=== PATIENT | male | born 1935 | race Caucasian/White ===

== ENCOUNTER 2020-08-23 12:17 | Outpatient (REF) | payer MEDICARE, SELFPAY ==
[2020-08-23 13:45] LABS: MANUAL DIFF FLAG NO
[2020-08-23 13:57] LABS: Basophils Percent Auto 0.6 % (0-2); Eosinophils Absolute Auto 0.2 X10*3/uL (0.0-0.4); Eosinophils Percent Auto 3.1 % (0-4); Hematocrit 39.5 % (42-52); Hemoglobin 12.8 g/dl (14.0-18.0); Imm Gran Abs Auto 0.02 X10*3/uL (0.00-0.03); Imm Gran Pct Auto 0.3 % (0.0-0.4); Lymphocytes Absolute Auto 1.3 X10*3/uL (1.2-4.9); Lymphocytes Percent Auto 20.9 % (20-40); Mean Corpuscular HGB Conc 32.4 g/dl (31.0-36.0); Mean Corpuscular Hemoglobin 29.3 pg (27.0-33.0); Mean Corpuscular Volume 90.4 fL (80-98); Mean Platelet Volume 11.7 fL (9.4-12.4); Monocytes Absolute Auto 0.5 X10*3/uL (0.1-1.2); Monocytes Percent Auto 8.2 % (2-11); Neutrophils Absolute Auto 4.3 X10*3/uL (2.0-8.3); Neutrophils Percent Auto 66.9 % (45-73); Platelet Count 158 X10*3/uL (160-400); Red Blood Count 4.37 X10*6/uL (4.60-5.80); Red Cell Distribution Width 13.9 % (11.0-16.0); White Blood Count 6.4 X10*3/uL (4.8-10.8)
[2020-08-23 14:28] LABS: Anion Gap 15 (12-20); Blood Urea Nitrogen 17 mg/dL (9-16); Calcium 8.8 mg/dL (8.4-10.2); Carbon Dioxide 26 mmol/L (22-29); Chloride 107 mmol/L (96-108); Estimated Glomerular Filt Rate > 60; Glucose Random 95 mg/dL (60-115); Iron 74 mcg/dL (45-160); Percent Iron Saturation 27 % (15-50); Potassium 4.6 mmol/L (3.3-5.1); Sodium 143 mmol/L (135-145); Total Iron Binding Capacity 271 mcg/dL (228-428); Unsaturated Iron Binding 197 ug/dL
== END 2020-08-23 12:18 | disposition home or self-care (01) ==
LOC: HO.10HDL 12:17
PROVIDERS: Visit Provider Internal Medicine
DX: D64.9 Anemia, unspecified (principal); N40.0 Benign prostatic hyperplasia without lower urinary tract symptoms; G40.909 Epilepsy, unspecified, not intractable, without status epilepticus
CPT/HCPCS: 36415; 80048; 83540; 85025

== ENCOUNTER 2021-02-22 09:02 | Outpatient (REF) | payer MEDICARE, SELFPAY ==
[2021-02-22 10:12] LABS: Basophils Percent Auto 0.4 % (0-2); Eosinophils Absolute Auto 0.3 X10*3/uL (0.0-0.4); Eosinophils Percent Auto 5.3 % (0-4); Hemoglobin 12.9 g/dl (14.0-18.0); MANUAL DIFF FLAG SCAN; Mean Platelet Volume 11.6 fL (9.4-12.4); PLT CLUMP 1; SCAN SMEAR FLAG 1
[2021-02-22 10:14] LABS: Hematocrit 39.4 % (42-52); Imm Gran Abs Auto 0.01 X10*3/uL (0.00-0.03); Imm Gran Pct Auto 0.2 % (0.0-0.4); Lymphocytes Absolute Auto 1.2 X10*3/uL (1.2-4.9); Lymphocytes Percent Auto 23.9 % (20-40); Mean Corpuscular HGB Conc 32.7 g/dl (31.0-36.0); Mean Corpuscular Hemoglobin 29.4 pg (27.0-33.0); Mean Corpuscular Volume 89.7 fL (80-98); Monocytes Absolute Auto 0.5 X10*3/uL (0.1-1.2); Monocytes Percent Auto 8.8 % (2-11); Neutrophils Absolute Auto 3.2 X10*3/uL (2.0-8.3); Neutrophils Percent Auto 61.4 % (45-73); Platelet Count 138 X10*3/uL (160-400); Red Blood Count 4.39 X10*6/uL (4.60-5.80); Red Cell Distribution Width 14.3 % (11.0-16.0); White Blood Count 5.1 X10*3/uL (4.8-10.8)
[2021-02-22 10:31] LABS: Alanine Aminotransferase 19 U/L (0-40); Albumin Level 4.1 g/dL (3.5-5.0); Alkaline Phosphatase 62 U/L (39-117); Anion Gap 11 (12-20); Aspartate Amino Transferase 16 U/L (5-37); Bilirubin Total 0.7 mg/dL (0.0-1.0); Blood Urea Nitrogen 18 mg/dL (9-16); Calcium 9.2 mg/dL (8.4-10.2); Carbon Dioxide 27 mmol/L (22-29); Chloride 109 mmol/L (96-108); Cholesterol 196 mg/dL; Estimated Glomerular Filt Rate > 60; Glucose Fasting 108 mg/dL (60-99); HDL Cholesterol 46 mg/dL; LDL Cholesterol Calculated 138 mg/dl; Potassium 4.5 mmol/L (3.3-5.1); Sodium 142 mmol/L (135-145); Total Protein 6.2 g/dL (6.5-8.0); Triglycerides 63 mg/dL
[2021-02-22 10:52] LABS: Prostate Specific Antigen 0.68 ng/mL (<0.05-4.0)
== END 2021-02-22 09:03 | disposition home or self-care (01) ==
LOC: HO.LAB 09:02
PROVIDERS: PCP Internal Medicine; Visit Provider Internal Medicine
DX: Z12.5 Encounter for screening for malignant neoplasm of prostate (principal); N40.0 Benign prostatic hyperplasia without lower urinary tract symptoms; D64.9 Anemia, unspecified; G40.909 Epilepsy, unspecified, not intractable, without status epilepticus
CPT/HCPCS: 36415; 80053; 80061; 84153; 85025

== ENCOUNTER 2022-04-03 08:16 | Outpatient (REF) | payer MEDICARE, SELFPAY ==
[2022-04-03 10:54] LABS: MANUAL DIFF FLAG NO
[2022-04-03 10:57] LABS: Basophils Absolute Auto 0.1 X10*3/uL (0.0-0.2); Basophils Percent Auto 0.9 % (0-2); Eosinophils Absolute Auto 0.3 X10*3/uL (0.0-0.4); Eosinophils Percent Auto 4.6 % (0-4); Hematocrit 40.4 % (42.0-52.0); Hemoglobin 13.1 g/dl (14.0-18.0); Imm Gran Abs Auto 0.01 X10*3/uL (0.00-0.03); Imm Gran Pct Auto 0.2 % (0.0-0.4); Lymphocytes Absolute Auto 1.6 X10*3/uL (1.2-4.9); Lymphocytes Percent Auto 27.8 % (20-40); Mean Corpuscular HGB Conc 32.4 g/dl (31.0-36.0); Mean Corpuscular Hemoglobin 28.9 pg (27.0-33.0); Mean Platelet Volume 11.4 fL (9.4-12.4); Monocytes Absolute Auto 0.5 X10*3/uL (0.1-1.2); Monocytes Percent Auto 8.4 % (2-11); Neutrophils Absolute Auto 3.3 x10*3/uL (2.0-8.3); Neutrophils Percent Auto 58.1 % (45-73); Platelet Count 143 X10*3/uL (160-400); Red Blood Count 4.54 X10*6/uL (4.60-5.80); Red Cell Distribution Width 13.9 % (11.0-16.0); White Blood Count 5.6 X10*3/uL (4.8-10.8)
[2022-04-03 11:11] LABS: Alanine Aminotransferase 22 U/L (0-40); Albumin Level 4.1 g/dL (3.5-5.0); Alkaline Phosphatase 58 U/L (39-117); Anion Gap 14 (12-20); Aspartate Amino Transferase 20 U/L (5-37); Bilirubin Total 0.7 mg/dL (0.0-1.0); Blood Urea Nitrogen 21 mg/dL (9-16); Calcium 9.4 mg/dL (8.4-10.2); Carbon Dioxide 26 mmol/L (22-29); Chloride 107 mmol/L (96-108); Cholesterol 174 mg/dL; Estimated Glomerular Filt Rate > 60; Glucose Fasting 112 mg/dL (60-99); HDL Cholesterol 52 mg/dL; Iron 114 mcg/dL (45-160); LDL Cholesterol Calculated 111 mg/dl; Percent Iron Saturation 45 % (15-50); Potassium 4.3 mmol/L (3.3-5.1); Sodium 143 mmol/L (135-145); Total Iron Binding Capacity 254 mcg/dL (228-428); Total Protein 6.1 g/dL (6.5-8.0); Triglycerides 59 mg/dL; Unsaturated Iron Binding 140 ug/dL
== END 2022-04-03 08:17 | disposition home or self-care (01) ==
LOC: HO.10HDL 08:16
PROVIDERS: Visit Provider Internal Medicine
DX: D64.9 Anemia, unspecified (principal); N40.0 Benign prostatic hyperplasia without lower urinary tract symptoms; G40.909 Epilepsy, unspecified, not intractable, without status epilepticus
CPT/HCPCS: 36415; 80053; 80061; 83540; 85025

== ENCOUNTER 2022-08-14 14:51 | Outpatient (REF) | payer MEDICARE, SELFPAY ==
[2022-08-14 15:06] LABS: MANUAL DIFF FLAG NO
[2022-08-14 15:30] LABS: Basophils Absolute Auto 0.1 X10*3/uL (0.0-0.2); Basophils Percent Auto 0.7 % (0-2); Eosinophils Absolute Auto 0.2 X10*3/uL (0.0-0.4); Eosinophils Percent Auto 2.6 % (0-4); Hematocrit 38.8 % (42.0-52.0); Hemoglobin 12.5 g/dl (14.0-18.0); Imm Gran Abs Auto 0.02 X10*3/uL (0.00-0.03); Imm Gran Pct Auto 0.3 % (0.0-0.4); Lymphocytes Absolute Auto 1.3 X10*3/uL (1.2-4.9); Lymphocytes Percent Auto 18.3 % (20-40); Mean Corpuscular HGB Conc 32.2 g/dl (31.0-36.0); Mean Corpuscular Hemoglobin 29.5 pg (27.0-33.0); Mean Corpuscular Volume 91.5 fL (80.0-98.0); Mean Platelet Volume 11.5 fL (9.4-12.4); Monocytes Absolute Auto 0.5 X10*3/uL (0.1-1.2); Monocytes Percent Auto 7.2 % (2-11); Neutrophils Percent Auto 70.9 % (45-73); Platelet Count 172 X10*3/uL (160-400); Red Blood Count 4.24 X10*6/uL (4.60-5.80); Red Cell Distribution Width 14.2 % (11.0-16.0); White Blood Count 7.1 X10*3/uL (4.8-10.8)
[2022-08-14 16:07] LABS: Alanine Aminotransferase 22 U/L (0-40); Albumin Level 4.1 g/dL (3.5-5.0); Alkaline Phosphatase 60 U/L (39-117); Anion Gap 11 (12-20); Aspartate Amino Transferase 20 U/L (5-37); Bilirubin Total 0.4 mg/dL (0.0-1.0); Blood Urea Nitrogen 19 mg/dL (9-16); Calcium 9.2 mg/dL (8.4-10.2); Carbon Dioxide 28 mmol/L (22-29); Chloride 110 mmol/L (96-108); Estimated Glomerular Filt Rate > 60; Glucose Random 109 mg/dL (60-115); Potassium 5.1 mmol/L (3.3-5.1); Sodium 144 mmol/L (135-145); Total Protein 6.2 g/dL (6.5-8.0)
[2022-08-14 16:22] LABS: Prostate Specific Antigen Scr 0.71 ng/mL (<0.05-4.0)
== END 2022-08-14 14:52 | disposition home or self-care (01) ==
LOC: HO.LAB 14:51
PROVIDERS: PCP Internal Medicine; Visit Provider Internal Medicine
DX: Z12.5 Encounter for screening for malignant neoplasm of prostate (principal); D64.9 Anemia, unspecified; N40.0 Benign prostatic hyperplasia without lower urinary tract symptoms; G40.909 Epilepsy, unspecified, not intractable, without status epilepticus
CPT/HCPCS: 36415; 80053; 84153; 85025

== ENCOUNTER 2022-11-13 14:40 | Outpatient (REF) | payer MEDICARE, SELFPAY ==
[2022-11-13 14:50] LABS: MANUAL DIFF FLAG NO
[2022-11-13 15:32] LABS: Basophils Percent Auto 0.4 % (0-2); Eosinophils Absolute Auto 0.2 X10*3/uL (0.0-0.4); Eosinophils Percent Auto 2.2 % (0-4); Hematocrit 37.3 % (42.0-52.0); Hemoglobin 12.1 g/dl (14.0-18.0); Imm Gran Abs Auto 0.02 X10*3/uL (0.00-0.03); Imm Gran Pct Auto 0.3 % (0.0-0.4); Lymphocytes Absolute Auto 1.3 X10*3/uL (1.2-4.9); Lymphocytes Percent Auto 18.6 % (20-40); Mean Corpuscular HGB Conc 32.4 g/dl (31.0-36.0); Mean Corpuscular Hemoglobin 29.7 pg (27.0-33.0); Mean Corpuscular Volume 91.4 fL (80.0-98.0); Mean Platelet Volume 11.2 fL (9.4-12.4); Monocytes Absolute Auto 0.4 X10*3/uL (0.1-1.2); Monocytes Percent Auto 6.5 % (2-11); Neutrophils Absolute Auto 4.9 x10*3/uL (2.0-8.3); Platelet Count 162 X10*3/uL (160-400); Red Blood Count 4.08 X10*6/uL (4.60-5.80); Red Cell Distribution Width 14.3 % (11.0-16.0); White Blood Count 6.8 X10*3/uL (4.8-10.8)
[2022-11-13 16:00] LABS: Alanine Aminotransferase 23 U/L (0-40); Albumin Level 4.1 g/dL (3.5-5.0); Alkaline Phosphatase 53 U/L (39-117); Anion Gap 11 (12-20); Aspartate Amino Transferase 19 U/L (5-37); Bilirubin Total 0.5 mg/dL (0.0-1.0); Blood Urea Nitrogen 20 mg/dL (9-16); C Reactive Protein < 0.10 mg/dL (< or = 0.50); Calcium 9.2 mg/dL (8.4-10.2); Carbon Dioxide 27 mmol/L (22-29); Chloride 107 mmol/L (96-108); Estimated Glomerular Filt Rate > 60; Glucose Random 99 mg/dL (60-115); Iron 73 mcg/dL (45-160); Percent Iron Saturation 30 % (15-50); Potassium 4.5 mmol/L (3.3-5.1); Sodium 140 mmol/L (135-145); Total Iron Binding Capacity 246 mcg/dL (228-428); Total Protein 6.2 g/dL (6.5-8.0); Unsaturated Iron Binding 173 ug/dL
== END 2022-11-13 14:41 | disposition home or self-care (01) ==
LOC: HO.LAB 14:40
PROVIDERS: PCP Internal Medicine; Visit Provider Internal Medicine
DX: R63.4 Abnormal weight loss (principal); N40.0 Benign prostatic hyperplasia without lower urinary tract symptoms; G40.909 Epilepsy, unspecified, not intractable, without status epilepticus; D64.9 Anemia, unspecified
CPT/HCPCS: 36415; 80053; 83540; 85025; 86140

== ENCOUNTER → 2022-12-28 11:04 | Outpatient (REF) | payer MEDICARE, SELFPAY ==
--- NOTE | ~2022-12-28 | NM_ITS ---
EXAMINATION: NM BONE SCAN OF THE WHOLE BODY CLINICAL INFORMATION: Disorder of bone, unspecified bone lesions COMPARISON: No previous bone scan is available for comparison. A radiograph of the pelvis dated 06/09/2013 and radiographs of the right hip dated 05/27/2013 are the only radiographs available for comparison. TECHNIQUE: Multiple gamma scintillation camera images of the whole body were performed 3.25 hours following the intravenous administration of 25 mCi Tc-99m MDP. FINDINGS: In the head, no significant abnormalities are present. In the thoracic cage and upper extremities, there is mildly increased activity in the acromioclavicular joints bilaterally. A few very mild periarticular foci are present in the right wrist and hand. In the spine, a very minimal thoracolumbar scoliosis is present with lumbar convexity to the left. There are foci of mildly increased activity present in the posterior elements at L4 and L5, predominantly on the left but some mildly increased activity in the right posterior elements at L5 L3-L4 is present. In the pelvis, no significant abnormalities are present. In the lower extremities, a photopenic defect from a right hip prosthesis is noted. There is a focus of mildly increased activity at the expected site of the distal femoral stem. There is minimally increased activity in the left greater femoral trochanter. There is mildly increased activity diffusely in both patellae and this is more intense on the left. There is additionally mildly increased activity in the tibial tuberosities and lateral tibial plateaus bilaterally and minimally in the medial compartment of the left knee. Very minimally increased activity is present in the medial malleolus of both ankles and in the proximal right foot. No other definite bony abnormalities are noted. The urinary bladder and faint visualization of both kidneys are noted. NM/NM bone scan whole body IMPRESSION: 1. A mild abnormality in the expected region of the distal femoral component tip of a right hip prosthesis is present. This is nonspecific and while this may represent normal postoperative bony remodeling, some focal ostial lysis or a small stress fracture at this site could also be responsible for this appearance. Clinical correlation is recommended, and correlation with plain radiographs is recommended if clinically indicated. 2. A few additional mild nonspecific abnormalities are noted as described above and these are all likely arthritic or traumatic in etiology. None of these abnormalities is strongly suspicious for metastatic disease.
== END ==
LOC: HO.NUCMED 11:04
PROVIDERS: Visit Provider Internal Medicine
DX: M89.9 Disorder of bone, unspecified (principal)
CPT/HCPCS: 78306; A9503

== ENCOUNTER 2024-08-14 14:54 | Outpatient (AMB) | payer MEDICARE, SELFPAY ==
--- NOTE | 2024-08-14 14:57 | A.OFFPC_ITS ---
Vital Signs 08/14/24 14:58 Height 5 ft 10 in Weight 152 lb BMI 21.8 BP 138/70 Respiration 14 Pulse 58 Pulse Source Pulse Oximeter Temp 97.6 F Temp Source Temporal Artery Scan Pulse Oximetry (%) 98 Oxygen Delivery Method Room Air Intake Visit Reasons: Routine Instrumentation Manager Required: No Accompanied by: Spouse Allergies No Known Allergies Allergy (Verified 08/14/24 14:57) Tobacco use date assessed: 08/14/24 Fall risk assessment: No Falls in past year Last assessed Fall Risk: 08/14/24 Dental Screening Dental Screen Date: 08/14/24 Did you have a dental visit in the last 12 months?: Yes Did you have a dental problem in the last 6 months where you did not have access to dental care?: No HPI HPI Comments History of Present Illness Details 89 year old male with a past medical his tory of BPH, seizure disorder, h/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 stable History of benign brain tumor, seizure disorder with neurology, Dr Momin in [place]. No recent seizures with lacosamide. Has pending appt with memory clinic/neuropsych testing at [facility]. Has not had labs. Endorses some memory loss, repeating questions over the past 2 years. Has hearing aids. Does not always wear them. No known sleep apnea. ROS CONSTITUTIONAL: Denies weight loss, fever and chills. HEENT: Denies changes in vision and hearing. RESPIRATORY: Denies SOB and cough. CV: Denies palpitations and CP GI: Denies abdominal pain, nausea, vomiting and diarrhea. : Denies dysuria and urinary frequency. MSK: Denies new myalgia and joint pain. SKIN: Denies rash and pruritus. NEUROLOGICAL: see HPI PSYCHIATRIC: Denies recent changes in mood. PHYSICAL EXAM: GENERAL: Alert and oriented x 3. NAD EYES: EOMI. Anicteric. HENT: Moist mucous membranes. No scleral icterus. No cervical lymphadenopathy. LUNGS: Clear to auscultation bilaterally. CARDIOVASCULAR: Regular rate and rhythm. No murmur. No JVD. ABDOMEN: Soft, non-tender +bs EXTREMITIES: No edema. Non-tender. SKIN: No rashes or lesions. Warm. NEUROLOGIC: No focal neurological deficits. CN II-XII grossly intact PSYCHIATRIC: Cooperative. Appropriate mood and affect [facility] Family History Father Emphysema of lung Mother No problems noted. Social History Housing: House Alcohol intake: current Alcohol intake frequency: holidays/special occasions only Alcohol type: wine Patient Tobacco Use Status: Never used Tobacco service: No Current occupational status: retired Cognitive needs: No Hearing needs: Yes Vision needs: Yes (rx glasses) Questionnaire PHQ-9 Over the last 2 weeks, how often have you been bothered by any of the following problems? 1. Little interest or pleasure in doing things: not at all 2. Feeling down, depressed, or hopeless: not at all 3. Trouble falling or staying asleep, or sleeping too much: not at all 4. Feeling tired or having little energy: not at all 5. Poor appetite or overeating: not at all 6. Feeling bad about yourself - or that you are a failure or have let yourself or your family down: not at all 7. Trouble concentrating on things, such as reading the newspaper or watching television: not at all 8. Moving or speaking so slowly that other people could have noticed. Or the opposite - being so fidgety or restless that you have been moving around a lot more than usual: not at all 9. Thoughts that you would be better off or of hurting yourself in some way: not at all Total score: 0 Depression Screening Interpretation: Negative Depression Screening Done: Yes 44696 - PHQ-9 Billing: Yes Source: Developed by Drs. Yevgeniy Braun, Violeta Valencia, Salo Langley and colleagues, with an educational kwan from [employer]. Thrive Questionnaire Date Thrive assessed: 08/14/24 I am a: Patient What is your living situation today?: I have a steady place to live Within the past 12 months, did the food you bought not last and you didn't have the money to get more?: Never true Within the past 12 months, did you worry whether your food would run out before you got money to buy more?: Never true Do you have trouble paying for medicines?: No Do you have trouble getting transportation to medical appointments?: No Do you have trouble paying your heating and electricity bill?: No Do you have trouble taking care of your child, family member or friend?: No Do you have trouble with day-to-day activities such as bathing, preparing meals, shopping, managing finances, etc.?: No Are you currently unemployed and looking for a job?: No Are you interested in more education?: No THRIVE Score: 0 AUDIT C Alcohol Use Questionnaire (AUDIT-C) 1. How often do you have a drink containing alcohol?: Monthly or less 2. How many drinks containing alcohol do you have on a typical day when you are drinking?: 1 or 2 3. How often do you have six or more drinks on one occasion?: Never Total Score: 1 AMANDA-7 AMB Questionnaire AMANDA-7 Date AMANDA - 7 assessed: 08/14/24 Feeling nervous, anxious, or on edge: 0 = Not at all Not being able to stop or control worryin = Not at all Worrying too much about different things: 0 = Not at all Trouble relaxin = Not at all Being so restless that it is hard to sit still: 0 = Not at all Becoming easily annoyed or irritable: 0 = Not at all Feeling afraid as if something awful might happen: 0 = Not at all Total AMANDA-7 score (0-4 normal; 5-9 mild; 10-14 moderate; 15-21 severe): 0 Source: Developed by Drs. Yevgeniy Braun, Violeta Valencia, Salo Langley and colleagues, with an educational kwan from [employer]. Physical exam (Primary Care) Vital Signs: Last Vital Signs Temp 97.6 F 08/14/24 14:58 Pulse 58 08/14/24 14:58 Resp 14 08/14/24 14:58 BP 138/70 08/14/24 14:58 Pulse Ox 98 08/14/24 14:58 Oxygen Delivery Method Room Air 08/14/24 14:58 BMI result Body Mass Index 21.8 Tobacco/Smoking Status: Tobacco use Status Tobacco use date assessed 08/14/24 08/14/24 15:08 Patient Tobacco Use Status Never used Tobacco 08/14/24 15:08 PHQ-9: PHQ-9 Score PHQ-9: Total score 0 08/15/24 08:50 Depression Screening Interpretation: Negative Thrive Assessment: Date of Thrive Assessment Date Thrive assessed 08/14/24 08/14/24 15:08 Coding Level of Care Code Est Pt Level 4 (24949) Complex EM visit Add On G2211 Diagnoses Seizure disorder G40.909 Memory loss R41.3 Meningioma D32.9 Left-sided carotid artery disease, unspecified type I77.9 Carotid artery disease type: unspecified Additional Codes PHQ-9 - 86609 - PHQ-9 Billing: Yes ([id number]) Assessment & Plan Assessment & Plan (1) Seizure disorder: Code(s): G40.909 - Epilepsy, unspecified, not intractable, without status epilepticus Category: Medical Plan: No recent seizure on lacosamide (2) Memory loss: Code(s): R41.3 - Other amnesia Category: Medical Plan: Pending [facility] evaluation Labs ordered (3) Meningioma: Code(s): D32.9 - Benign neoplasm of meninges, unspecified Category: Medical Plan: Monitoring per neurology (4) Left-sided carotid artery disease: Code(s): I77.9 - Disorder of arteries and arterioles, unspecified Category: Medical Qualifiers: Carotid artery disease type: unspecified Qualified Code(s): I77.9 - Disorder of arteries and arterioles, unspecified Plan: Unclear last imaging will address at next visit Orders: Orders IRON PROFILE 08/14/24 D32.9 - Benign neoplasm of meninges, unspecified, D64.9 - Anemia, unspecified, G40.909 - Epilepsy, unspecified, not intractable, without status epilepticus, I77.9 - Disorder of arteries and arterioles, unspecified, R41.3 - Other amnesia TSH reflex Free T4 08/14/24 D32.9 - Benign neoplasm of meninges, unspecified, D64.9 - Anemia, unspecified, G40.909 - Epilepsy, unspecified, not intractable, without status epilepticus, I77.9 - Disorder of arteries and arterioles, unspecified, R41.3 - Other amnesia Vitamin B12 and Folate 08/14/24 D32.9 - Benign neoplasm of meninges, unspecified, D64.9 - Anemia, unspecified, G40.909 - Epilepsy, unspecified, not intractable, without status epilepticus, I77.9 - Disorder of arteries and arterioles, unspecified, R41.3 - Other amnesia Lipid Panel 08/14/24 D32.9 - Benign neoplasm of meninges, unspecified, D64.9 - Anemia, unspecified, G40.909 - Epilepsy, unspecified, not intractable, without status epilepticus, I77.9 - Disorder of arteries and arterioles, unspecified, R41.3 - Other amnesia Lyme IgG/IgM w/reflex to WB 08/14/24 D32.9 - Benign neoplasm of meninges, unspecified, D64.9 - Anemia, unspecified, G40.909 - Epilepsy, unspecified, not intractable, without status epilepticus, I77.9 - Disorder of arteries and arterioles, unspecified, R41.3 - Other amnesia Complete Blood Count Auto Diff 08/14/24 D32.9 - Benign neoplasm of meninges, unspecified, D64.9 - Anemia, unspecified, G40.909 - Epilepsy, unspecified, not intractable, without status epilepticus, I77.9 - Disorder of arteries and arterioles, unspecified, R41.3 - Other amnesia Hemoglobin A1c 08/14/24 D32.9 - Benign neoplasm of meninges, unspecified, D64.9 - Anemia, unspecified, G40.909 - Epilepsy, unspecified, not intractable, without status epilepticus, I77.9 - Disorder of arteries and arterioles, unspecified, R41.3 - Other amnesia Comprehensive Met. Panel 08/14/24 D32.9 - Benign neoplasm of meninges, unspecified, D64.9 - Anemia, unspecified, G40.909 - Epilepsy, unspecified, not intractable, without status epilepticus, I77.9 - Disorder of arteries and arterioles, unspecified, R41.3 - Other amnesia Vitamin D 25-OH (D2 and D3) 08/14/24 R41.3 - Other amnesia
[2024-08-14 14:58] VITALS: BP 138/70; PULSE 58; RESP 14; TEMP 36.4; O2SAT 98; BMI 21.8
--- OUTSIDE RECORDS SUMMARY | 2024-08-14 18:39 | XMS_ITS | Continuity of Care Document ---
Author Organization [facility] Address [address], [address], [address] [place] [id number] Care Team Providers Care Ocean Clam Boat Captain Name Role Phone Cj Ludwig MD Primary Care Physician Encounter [facility] NBR [id number] Date(s): 06/30/24 - 07/30/24 [facility] [address] [place] [address] [address]rd Floor, [address] [place] [id number] Encounter Type: Triage Allergies, Adverse Reactions, Alerts No Known Allergies Medications finasteride 5 mg oral tablet 1 tablet = 5 mg, By Mouth, Daily, # 30 tablet, 0 Refills, Maintenance, 03/19/15 1:56:05 AM EDT, Tablet Start Date: 03/19/15 Status: Ordered Quantity: 30.0 Unit: tablet Repeat number: 1 lacosamide 200 mg oral tablet 0 Refills, Maintenance, 05/16/23 3:09:00 PM EST, Partial fill upon patient request if the prescription is for a schedule II opioid drug. Start Date: 05/16/23 Status: Ordered Repeat number: 1 levETIRAcetam 750 mg oral tablet 2 tablet = 1,500 mg, By Mouth, 2 times a day, # 360 tablet, 3 Refills, Maintenance, 07/06/22 7:21:00 PM EST, Tablet, [facility]/pharmacy #[id number], Partial fill upon patient request if the prescription is for a schedule II opioid drug., 173, cm, 08/23/21 21:59:00 EDT, Height, 74, kg, 08/23/21 21:59:00 EDT, Dry Weight Start Date: 07/06/22 Status: Ordered Quantity: 360.0 Unit: tablet Repeat number: 4 Indication: Unspecified convulsions tamsulosin 0.4 mg oral capsule 1 capsule = 0.4 mg, By Mouth, Daily, evening after meals, # 30 capsule, 0 Refills, Maintenance, 03/19/15 2:50:28 AM EDT, Capsule Start Date: 03/19/15 Status: Ordered Quantity: 30.0 Unit: capsule Repeat number: 1 Problem List Condition Confirmation Course Effective Dates Status Health St [facility] Informant Meningioma s/p resection (2016) Confirmed Active BPH Confirmed Active Seizure Confirmed Active Social History Social History Type Response Smoking Status Former smoker, quit more than 30 days ago entered on: 05/16/23 Sex Sex Representation Male (finding) Patient Care team information Care Team Personnel Name: Alondra Mckeon RN Position: [facility] RN Member Role: Primary Care Nurse Name: Kalie Cope NP Position: [facility] PCO Associate Professional Member Role: Primary Care Nurse Address: [address] [place] [address] Telecom: Name: Cj Ludwig MD Position: [facility] Outreach Member Role: PCP Address: [address] [place] [address] Oziel TSANG [place], [place] [address] Telecom: Name: Gonsalo Sepulveda RN Position: [facility] Embalmer Member Role: Primary Care Nurse Name: Sy Mancera RN Position: [facility] RN Member Role: Primary Care Nurse Name: Chantel Hurley Position: [facility] [place] Nurse Member Role: [employer] Consulting Physician Name: Vivian Dillon RN Position: [facility] RN Member Role: Primary Care Nurse Care Team Related Persons Name: ADRIAN MORALES Name: MONICA MORALES Insurance Providers Guarantor name: IRLANDA Health Plan Information #: 1 Payer: MEDICARE PART B OUTPT Member Number: NA Policy Number: NA Group Number: NA Health Plan Information #: 2 Payer: MEDEX Member Number: NA Policy Number: NA Group Number: NA
== END 2024-08-14 15:41 | disposition home or self-care (01) ==
LOC: HO.HMCHD 14:54
PROVIDERS: PCP Internal Medicine; Visit Provider Internal Medicine
DX: G40.909 Epilepsy, unspecified, not intractable, without status epilepticus (principal); R41.3 Other amnesia; D32.9 Benign neoplasm of meninges, unspecified; I77.9 Disorder of arteries and arterioles, unspecified

== ENCOUNTER → 2024-08-14 14:54 | Outpatient (BNVA) | payer MEDICARE, SELFPAY | PROVIDERS: PCP Internal Medicine; Visit Provider Internal Medicine | DX: N40.0 Benign prostatic hyperplasia without lower urinary tract symptoms (principal); G40.909 Epilepsy, unspecified, not intractable, without status epilepticus; R41.3 Other amnesia; D32.9 Benign neoplasm of meninges, unspecified; I77.9 Disorder of arteries and arterioles, unspecified; D64.9 Anemia, unspecified | CPT/HCPCS: 96127; 99212 ==

== ENCOUNTER 2024-08-16 07:22 | Outpatient (REF) | payer MEDICARE, SELFPAY ==
[2024-08-16 07:41] LABS: MANUAL DIFF FLAG NO
[2024-08-16 07:49] LABS: Basophils Percent Auto 0.7 % (0-2); Eosinophils Absolute Auto 0.3 X10*3/uL (0.0-0.4); Eosinophils Percent Auto 4.9 % (0-4); Hematocrit 39.8 % (42.0-52.0); Hemoglobin 12.8 g/dl (14.0-18.0); Imm Gran Abs Auto 0.02 X10*3/uL (0.00-0.03); Imm Gran Pct Auto 0.4 % (0.0-0.4); Lymphocytes Absolute Auto 1.5 X10*3/uL (1.2-4.9); Lymphocytes Percent Auto 28.6 % (20-40); Mean Corpuscular HGB Conc 32.2 g/dl (31.0-36.0); Mean Corpuscular Hemoglobin 28.9 pg (27.0-33.0); Mean Corpuscular Volume 89.8 fL (80.0-98.0); Mean Platelet Volume 10.6 fL (9.4-12.4); Monocytes Absolute Auto 0.5 X10*3/uL (0.1-1.2); Monocytes Percent Auto 9.2 % (2-11); Neutrophils Percent Auto 56.2 % (45-73); Platelet Count 161 X10*3/uL (160-400); Red Blood Count 4.43 X10*6/uL (4.60-5.80); Red Cell Distribution Width 14.7 % (11.0-16.0); White Blood Count 5.4 X10*3/uL (4.8-10.8)
[2024-08-16 08:01] LABS: Estimated Average Glucose 117 mg/dL; Hemoglobin A1c % 5.7 % (<6.0)
[2024-08-16 08:46] LABS: Alanine Aminotransferase 35 U/L (0-40); Albumin Level 4.2 g/dL (3.5-5.0); Alkaline Phosphatase 62 U/L (39-117); Anion Gap 12 (12-20); Aspartate Amino Transferase 25 U/L (5-37); Bilirubin Total 0.5 mg/dL (0.0-1.0); Blood Urea Nitrogen 20 mg/dL (9-16); Calcium 9.4 mg/dL (8.4-10.2); Carbon Dioxide 27 mmol/L (22-29); Chloride 109 mmol/L (96-108); Cholesterol 198 mg/dL (<200); Estimated Glomerular Filt Rate > 60; Glucose Random 108 mg/dL (60-115); HDL Cholesterol 64 mg/dL (>40); Iron 87 mcg/dL (45-160); LDL Cholesterol Calculated 124 mg/dL (<100); Percent Iron Saturation 35 % (15-50); Potassium 4.6 mmol/L (3.3-5.1); Sodium 143 mmol/L (135-145); Total Iron Binding Capacity 250 mcg/dL (228-428); Triglycerides 52 mg/dL (<150); Unsaturated Iron Binding 163 ug/dL
[2024-08-16 09:01] LABS: TSH reflex Free T4 3.98 uIU/mL (0.32-4.0)
[2024-08-16 09:09] LABS: Folate > 20.0 ng/mL (> or = 4.0); Vitamin B12 809 pg/mL (200-900)
[2024-08-18 23:13] LABS: Lyme Blot 7.52 index
[2024-08-19 12:33] LABS: Lyme Abs Screen POSITIVE
[2024-08-19 20:14] LABS: 18 KD (IgG) Band REACTIVE; 23 KD (IgG) Band REACTIVE; 23 KD (IgM) Band NON-REACTIVE; 28 KD (IgG) Band REACTIVE; 30 KD (IgG) Band REACTIVE; 39 KD (IgM) Band REACTIVE; 39KD (IgG) Band REACTIVE; 41 KD (IgM) Band NON-REACTIVE; 41KD (IgG) Band REACTIVE; 45 KD (IgG) Band NON-REACTIVE; 58 KD (IgG) Band REACTIVE; 66 KD (IgG) Band NON-REACTIVE; 93 KD (IgG) Band REACTIVE; Lyme IgG Blot Interp POSITIVE (NEGATIVE); Lyme IgM Blot Interp NEGATIVE (NEGATIVE)
[2024-08-20 19:43] LABS: Vitamin D 25-OH, D2 <4 ng/mL; Vitamin D 25-OH, D3 40 ng/mL; Vitamin D 25-OH, Total 40 ng/mL (30-100)
== END 2024-08-16 07:23 | disposition home or self-care (01) ==
LOC: HO.LAB 07:22
PROVIDERS: PCP Internal Medicine; Visit Provider Internal Medicine
DX: R41.3 Other amnesia (principal); G40.909 Epilepsy, unspecified, not intractable, without status epilepticus; D64.9 Anemia, unspecified; I77.9 Disorder of arteries and arterioles, unspecified; D32.9 Benign neoplasm of meninges, unspecified; Z13.1 Encounter for screening for diabetes mellitus
CPT/HCPCS: 36415; 80053; 80061; 82306; 82607; 82746; 83036; 83540; 84443; 85025; 86617; 86618

== ENCOUNTER 2024-11-14 15:13 | Outpatient (AMB) | payer MEDICARE, SELFPAY ==
[2024-11-14 15:15] VITALS: BP 122/70; PULSE 58; TEMP 36.6; O2SAT 97; BMI 21.2
--- NOTE | 2024-11-14 15:15 | A.OFFPC_ITS ---
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 Required: No Accompanied by: Self / Same As Patient Allergies No Known Allergies Allergy (Verified 11/14/24 15:16) Tobacco use date assessed: 11/14/24 Fall risk assessment: No Falls in past year Last assessed Fall Risk: 11/14/24 Dental Screening Dental Screen Date: 11/14/24 Did you have a dental visit in the last 12 months?: Yes Did you have a dental problem in the last 6 months where you did not have access to dental care?: No HPI HPI Comments History of Present Illness Details 89 year old male with a past medical his tory of BPH, seizure disorder, 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 Developed left sided facial droop. Went to stand up from table and was weak. Symptoms resolved after 10 minutes. Went to [facility]-sent [facility]. They believe CT head was performed and negative but the medical team recommended he follow up for outpatient MRI which they did not have available at that time. Patient has not had recurrent symptoms. History of benign brain tumor, seizure disorder with neurology, [facility] [place] No recent seizures with lacosamide. Pending appt with Dr Lobo for neuropsych testing. Endorses some memory loss, repeating questions over the past 2 years. Has hearing aids. Does not always wear them. No known sleep apnea. BPH: On finasteride, tamsulosin. Stable ROS CONSTITUTIONAL: Denies weight loss, fever and chills. HEENT: Denies changes in vision and hearing. RESPIRATORY: Denies SOB and cough. CV: Denies palpitations and CP GI: Denies abdominal pain, nausea, vomiting and diarrhea. : Denies dysuria and urinary frequency. MSK: Denies new myalgia and joint pain. SKIN: Denies rash and pruritus. NEUROLOGICAL: see HPI PSYCHIATRIC: Denies recent changes in mood. PHYSICAL EXAM: GENERAL: Alert and oriented x 3. NAD EYES: EOMI. Anicteric. HENT: Moist mucous membranes. No scleral icterus. No cervical lymphadenopathy. LUNGS: Clear to auscultation bilaterally. CARDIOVASCULAR: Regular rate and rhythm. Left carotid bruit No JVD. ABDOMEN: Soft, non-tender +bs EXTREMITIES: No edema. Non-tender. SKIN: No rashes or lesions. Warm. NEUROLOGIC: No focal neurological deficits. CN II-XII grossly intact PSYCHIATRIC: Cooperative. Appropriate mood and affect [facility] Family History Father Emphysema of lung Mother No problems noted. Social History Housing: House Alcohol intake: current Alcohol intake frequency: holidays/special occasions only Alcohol type: wine Patient Tobacco Use Status: Never used Tobacco e-Cigarette/Vaping Use: Never Used service: No Current occupational status: retired Cognitive needs: No Hearing needs: Yes Vision needs: Yes (rx glasses) Questionnaire PHQ-9 Over the last 2 weeks, how often have you been bothered by any of the following problems? 1. Little interest or pleasure in doing things: not at all 2. Feeling down, depressed, or hopeless: not at all 3. Trouble falling or staying asleep, or sleeping too much: not at all 4. Feeling tired or having little energy: not at all 5. Poor appetite or overeating: not at all 6. Feeling bad about yourself - or that you are a failure or have let yourself or your family down: not at all 7. Trouble concentrating on things, such as reading the newspaper or watching television: not at all 8. Moving or speaking so slowly that other people could have noticed. Or the opposite - being so fidgety or restless that you have been moving around a lot more than usual: not at all 9. Thoughts that you would be better off or of hurting yourself in some way: not at all Total score: 0 Depression Screening Interpretation: Negative Depression Screening Done: Yes 70643 - PHQ-9 Billing: Yes Source: Developed by Drs. Yevgeniy Braun, Violeta Valencia, Salo Langley and colleagues, with an educational kwan from [employer]. Thrive Questionnaire Date Thrive assessed: 11/14/24 I am a: Patient Within the past 12 months, did the food you bought not last and you didn't have the money to get more?: Never true Within the past 12 months, did you worry whether your food would run out before you got money to buy more?: Never true Do you have trouble paying for medicines?: No Do you have trouble getting transportation to medical appointments?: No Do you have trouble paying your heating and electricity bill?: No Do you have trouble taking care of your child, family member or friend?: No Do you have trouble with day-to-day activities such as bathing, preparing meals, shopping, managing finances, etc.?: No Are you currently unemployed and looking for a job?: No Are you interested in more education?: No THRIVE Score: 0 AUDIT C Alcohol Use Questionnaire (AUDIT-C) 1. How often do you have a drink containing alcohol?: Monthly or less 2. How many drinks containing alcohol do you have on a typical day when you are drinking?: 1 or 2 3. How often do you have six or more drinks on one occasion?: Less than monthly Total Score: 2 AMANDA-7 AMB Questionnaire AMANDA-7 Date AMANDA - 7 assessed: 11/14/24 Feeling nervous, anxious, or on edge: 1 = Several days (a little bit anxiety) Not being able to stop or control worryin = Not at all Worrying too much about different things: 0 = Not at all Trouble relaxin = Not at all Being so restless that it is hard to sit still: 0 = Not at all Becoming easily annoyed or irritable: 0 = Not at all Feeling afraid as if something awful might happen: 0 = Not at all Total AMANDA-7 score (0-4 normal; 5-9 mild; 10-14 moderate; 15-21 severe): 1 Source: Developed by Drs. Yevgeniy Braun, Violeta Valencia, Salo Langley and colleagues, with an educational kwan from [employer]. Physical exam (Primary Care) Vital Signs: Last Vital Signs Temp 97.9 F 11/14/24 15:15 Pulse 58 11/14/24 15:15 BP 122/70 11/14/24 15:15 Pulse Ox 97 11/14/24 15:15 Oxygen Delivery Method Room Air 11/14/24 15:15 BMI result Body Mass Index 21.2 Tobacco/Smoking Status: Tobacco use Status Tobacco use date assessed 11/14/24 11/14/24 15:17 Patient Tobacco Use Status Never used Tobacco 11/14/24 15:17 e-Cigarette/Vaping Use Never Used 11/14/24 15:17 PHQ-9: PHQ-9 Score PHQ-9: Total score 0 11/14/24 15:33 Depression Screening Interpretation: Negative Thrive Assessment: Date of Thrive Assessment Date Thrive assessed 11/14/24 11/14/24 15:17 Coding Level of Care Code Est Pt Level 4 (13687) Complex EM visit Add On G2211 Diagnoses TIA (transient ischemic attack) G45.9 Left-sided carotid artery disease, unspecified type I77.9 Carotid artery disease type: unspecified Seizure disorder G40.909 Memory loss R41.3 Additional Codes PHQ-9 - 43512 - PHQ-9 Billing: Yes ([id number]) Assessment & Plan Assessment & Plan (1) TIA (transient ischemic attack): Code(s): G45.9 - Transient cerebral ischemic attack, unspecified Category: Medical (2) Left-sided carotid artery disease: Code(s): I77.9 - Disorder of arteries and arterioles, unspecified Category: Medical Qualifiers: Carotid artery disease type: unspecified Qualified Code(s): I77.9 - Disorder of arteries and arterioles, unspecified (3) Seizure disorder: Code(s): G40.909 - Epilepsy, unspecified, not intractable, without status epilepticus Category: Medical (4) Memory loss: Code(s): R41.3 - Other amnesia Category: Medical Plan Hospital course discussed. D/C summary not available for review TIA-MRI ordered Left carotid bruit-carotid u/s ordered Orders: Orders US carotid duplex BI 11/14/24 D32.9 - Benign neoplasm of meninges, unspecified, G45.9 - Transient cerebral ischemic attack, unspecified, I77.9 - Disorder of arteries and arterioles, unspecified MR head/brain wo/w con 11/14/24 D32.9 - Benign neoplasm of meninges, unspecified, G45.9 - Transient cerebral ischemic attack, unspecified
== END 2024-11-14 16:05 | disposition home or self-care (01) ==
LOC: HO.HMCHD 15:14
PROVIDERS: PCP Internal Medicine; Visit Provider Internal Medicine
DX: G45.9 Transient cerebral ischemic attack, unspecified (principal); I77.9 Disorder of arteries and arterioles, unspecified; G40.909 Epilepsy, unspecified, not intractable, without status epilepticus; R41.3 Other amnesia

== ENCOUNTER → 2024-11-14 15:13 | Outpatient (BNVA) | payer MEDICARE, SELFPAY | PROVIDERS: PCP Internal Medicine; Visit Provider Internal Medicine | DX: I77.9 Disorder of arteries and arterioles, unspecified (principal); G40.909 Epilepsy, unspecified, not intractable, without status epilepticus; R41.3 Other amnesia; N40.0 Benign prostatic hyperplasia without lower urinary tract symptoms; Z86.73 Personal history of transient ischemic attack (TIA), and cerebral infarction without residual deficits; Z79.899 Other long term (current) drug therapy; Z96.641 Presence of right artificial hip joint | CPT/HCPCS: 96127; 99212 ==

== ENCOUNTER 2024-11-27 11:06 | Outpatient (REF) | payer MEDICARE, SELFPAY ==
--- NOTE | ~2024-11-27 | MR_ITS ---
EXAMINATION: MR BRAIN WITHOUT THEN WITH IV CONTRAST HISTORY: G45.9 - Transient cerebral ischemic attack, unspecified TECHNIQUE: Sagittal T1, and axial T1, FLAIR, T2, gradient echo, and diffusion weighted MR images of the brain were obtained. Subsequently, sagittal, axial, and coronal T1-weighted images were obtained after the administration of intravenous gadolinium. 7 mL Gadavist was administered. COMPARISON: There are no prior studies available for comparison. FINDINGS: There is diffuse prominence of the ventricular system and cortical sulci, consistent with atrophy. There is a 3.3 x 2.4 x 2.5 cm homogeneously enhancing extra-axial mass at the anterior aspect of the right temporal lobe. The mass demonstrates prominent extension along the dura of the inferior right frontal lobe and inferior portion of the temporal lobe. There is evidence of invasion of the right sphenoid bone which also demonstrates diffuse enhancement. There is bulging of the sphenoid bone into the right orbit at the apex. There is moderate edema of the anterior aspect of the right temporal lobe in the inferior right frontal lobe. There is no significant mass effect or midline shift. No intra or extra-axial fluid collections are identified. There are no foci of restricted diffusion. No abnormal intra-axial contrast enhancement is seen. There is degenerative change of the atlantoaxial joint with pannus causing mild mass effect on the medulla. Normal vascular flow voids are noted in the basilar and carotid arteries. There is partial opacification of right ethmoid air cells. MR/MR head/brain wo/w con IMPRESSION: 3.3 x 2.4 x 2.5 cm extra-axial mass at the anterior aspect of the right temporal lobe with a prominent dural tail, suggestive of a meningioma. However, there are aggressive features including invasion of the right sphenoid bone with possible extension into the orbital apex, and moderate vasogenic edema in the right temporal and frontal lobes, suspicious for malignancy. Neurosurgical referral is recommended. Findings were sent to Dr. San by secure text message on 11/27/2024 at 1:22 PM. Electronically signed by: Yevgeniy Albright MD 11/27/2024 01:27 PM EDT
[2024-11-27] MEDS: gadobutroL 7.5 ML VIAL IVPUSH (12:15)
--- OUTSIDE RECORDS SUMMARY | 2024-11-27 13:16 | XMS_ITS | Patient Health Record ---
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
== END 2024-11-27 11:07 | disposition home or self-care (01) ==
LOC: HO.MRI 11:06
PROVIDERS: PCP Internal Medicine; Visit Provider Internal Medicine
DX: D32.9 Benign neoplasm of meninges, unspecified (principal); G45.9 Transient cerebral ischemic attack, unspecified
CPT/HCPCS: 70553; A9585

== ENCOUNTER → 2024-11-27 11:34 | Outpatient (BNV) | payer MEDICARE, SELFPAY | PROVIDERS: PCP Internal Medicine; Visit Provider Radiology Diagnostic Radiology | DX: G45.9 Transient cerebral ischemic attack, unspecified (principal) | CPT/HCPCS: 70553 ==

== ENCOUNTER 2024-12-25 13:11 | Outpatient (REF) | payer MEDICARE, SELFPAY ==
--- NOTE | ~2024-12-25 | US_ITS ---
CLINICAL HISTORY: I77.9 - Disorder of arteries and arterioles, unspecified --- Additional Notes or Special Instructions: TIA US bilateral carotid duplex Comparison: None Findings: No significant plaque within the common carotid arteries. Moderate soft plaque distally within the left carotid bulb. No significant plaque on the right. Moderate soft plaque within the proximal left internal carotid artery. No significant plaque on the right. Waveforms are normal morphology. Peak systolic and end-diastolic velocities: Right CCA: 87.0 cm/s Right ICA: 99.0 cm/s Right ICA EDV: 22.0 cm/sec Right systolic ICA/CCA ratio: 0.88 Right ECA: Unremarkable Right vertebral artery flow antegrade. Left CCA: 124.0 cm/s Left ICA: 247.0 cm/s Left ICA EDV: 30.0 cm/sec Left systolic ICA/CCA ratio: 2.61 Left ECA: Unremarkable Left vertebral artery flow antegrade. Criteria for grading carotid stenosis Stenosis % ICA PSV cm/s ICA/CCA PSV ratio ICA EDV 0-50% <125 <2.0 <40 50-69% 125-230 2.0-4.0 40-100 70% + > 230 >4.0 >100 Impression: 1. Moderate soft plaque at the junction of the left common carotid /internal carotid artery junction with 50-79% stenosis on the left. 2. No hemodynamically significant stenosis on the right. This document has been electronically signed by: Piter Kan MD on 12/25/2024 19:06:24
--- OUTSIDE RECORDS SUMMARY | 2024-12-25 13:22 | XMS_ITS | Patient Health Record ---
Author Organization [facility] Address [address] [facility] [address] [place] [id number] Care Team Providers Care Net Solutions Architect Name Role Phone Yevgeniy Chase Unavailable [phone] Reason For Referral No Information Plan Of Treatment No Information
== END 2024-12-25 13:12 | disposition home or self-care (01) ==
LOC: HO.HMGCX 13:11
PROVIDERS: PCP Internal Medicine; Visit Provider Internal Medicine
DX: G45.9 Transient cerebral ischemic attack, unspecified (principal); I77.9 Disorder of arteries and arterioles, unspecified; D32.9 Benign neoplasm of meninges, unspecified
CPT/HCPCS: 93880

== ENCOUNTER 2025-03-12 09:22 | Outpatient (AMB) | payer MEDICARE, SELFPAY ==
--- NOTE | 2025-03-12 09:24 | A.OFFVIS_ITS ---
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 Patient had a TIA in early November of this year. Patient had carotid US on December 25, 2024. No complaints as of today. 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 Very spry gentleman who appears significantly younger than stated age. The history of the problem began when the patient experienced a transient ischemic attack (TIA) while in [place], characterized by facial drooping on the left side and balance issues. The event occurred in early November, and the patient was [facility] and then to an [facility] where an MRI was performed. The MRI ruled out any connection to a previously diagnosed meningioma. The patient has a history of meningioma, which previously caused seizures, but he has not experienced seizures recently. 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 An ultrasound of the carotid arteries was performed in December. Presents to us for vascular evaluation [facility] Family History Father Emphysema of lung Mother No problems noted. Social History Housing: House Alcohol intake: current Alcohol intake frequency: holidays/special occasions only Alcohol type: wine Patient Tobacco Use Status: Never used Tobacco e-Cigarette/Vaping Use: Never Used service: No Current occupational status: retired Cognitive needs: No Hearing needs: Yes Vision needs: Yes (rx glasses) Review of Systems Const All systems reviewed & are unremarkable except as noted in HPI and below Reports no additional complaints ENT Reports Normal hearing present Card Denies chest pain, Denies chest pain at rest, Denies chest pain with activity and Denies pedal edema Resp Denies cough GI Denies abdominal pain Musc Denies abnormal gait, Denies muscle cramps and Denies radiating pain into limb Skin/Breast Denies skin ulcer and Denies wounds Neuro Reports Normal hearing present and Denies abnormal gait Psych Reports no additional complaints Physical Exam Const General: cooperative, healthy appearing and comfortable Orientation/consciousness: oriented to person, oriented to place and oriented to time HEENT Head: Yes normal to inspection Neck Neck: Yes normal visual inspection Carotids: no bruits Chest Chest palpation & inspection: normal inspection of the chest Resp Effort & Inspection: normal respiratory effort and able to speak in complete sentences Auscultation: clear to auscultation bilaterally, no crackles, no rales, no rhonchi and no wheezes Cardio Rate: regular rate Rhythm: regular rhythm Heart sounds: S1 normal heart sound present and S2 normal heart sound present Bruits: no carotid bruits Peripheral pulses: Peripheral pulses 2+ throughout GI Inspection: Yes normal to inspection Skin Wounds: no wounds Hair: normal Neuro General: oriented to person, oriented to place and oriented to time Cranial nerves: Yes CN's II-XII intact bilaterally and Yes Normal hearing present Cognition (Neuro): normal cognition Motor exam (neuro): 5/5 motor strength present throughout Extrem Other: venous exam: No significant superficial varicosities or spider telangiectasias, minimal edema General: No clubbing, No cyanosis and No edema Psych Appearance: grossly normal Mental Status: mental status grossly normal Speech and movement: Normal speech and movement present Results Reviewed Results Reviewed: Carotid testing dated 12/25/2024 demonstrates right-sided 0-49 left side 50-79% with a peak systolic of 247. Assessment & Plan Assessment & Plan (1) Left-sided carotid artery disease: Code(s): I77.9 - Disorder of arteries and arterioles, unspecified Category: Medical Qualifiers: Carotid artery disease type: unspecified Qualified Code(s): I77.9 - Disorder of arteries and arterioles, unspecified Plan: In short patient has left carotid stenosis.. We have reviewed signs and symptoms of a stroke. We also discussed risk factor modification inclusive a healthy diet low in cholesterol. To better elucidate the true degree of stenosis CT angiogram of the carotids will be obtained. Thank you for allowing us to participate in this patient's care. If there are any questions or concerns please do not hesitate to contact us. Orders: Orders Creatinine Today I77.9 - Disorder of arteries and arterioles, unspecified CT angio neck Today I77.9 - Disorder of arteries and arterioles, unspecified Blood Urea Nitrogen Today I77.9 - Disorder of arteries and arterioles, unspecified Coding Level of Care Code New Pt Level 4 (24305) Complex EM visit Add On G2211 Diagnoses Left-sided carotid artery disease, unspecified type I77.9 Carotid artery disease type: unspecified
== END 2025-03-12 09:56 | disposition home or self-care (01) ==
LOC: HO.HVS 09:23
PROVIDERS: PCP Internal Medicine; Visit Provider Surgery Vascular Surgery
DX: I77.9 Disorder of arteries and arterioles, unspecified (principal)
CPT/HCPCS: 99204; G2211